=== PATIENT | female | born 1990 | race American Indian/Alaskan Native ===

== ENCOUNTER 2016-09-11 01:00 | Emergency (ER) | payer SELFPAY ==
[2016-09-11 01:18] VITALS: BP 116/84
[2016-09-11] MEDS ORDERED: PERCOCET 5/325 PO ONE (02:34)
--- NOTE | 2016-09-11 02:36 | Emergency Department Report ---
ED Fall HPI - General Chief Complaint: Fall Stated Complaint: LEG FEELS BROKEN Time Seen by Provider: 09/11/16 02:26 Source: patient Mode of arrival: Wheelchair - History of Present Illness Initial Comments: She comes in the ER today complaining of left leg pain after falling and tripping down some stairs tonight. Patient denies any neck pain, head injury, loss of consciousness, bleeding, abdominal pain, chest pain. Patient states that she tried to get up but she has not been able to weight on her left leg. MD Complaint: fall - Related Data Previous Rx's Medication Instructions Recorded Last Taken Type Naproxen [Naprosyn TAB] 500 mg PO BID #14 tablet 09/11/16 Unknown Rx oxyCODONE /ACETAMINOPHEN [Percocet 1 tab PO Q6HR #18 tablet 09/11/16 Unknown Rx 5/325 mg] Allergies Allergy/AdvReac Type Severity Reaction Status Date / Time No Known Allergies Allergy Unverified 07/29/14 16:31 ED Review of Systems ROS: Stated complaint: LEG FEELS BROKEN Other details as noted in HPI Constitutional: denies: chills, fever Eyes: denies: eye pain, eye discharge, vision change ENT: denies: ear pain, throat pain Respiratory: denies: cough, shortness of breath, wheezing Cardiovascular: denies: chest pain, palpitations Endocrine: no symptoms reported Gastrointestinal: denies: abdominal pain, nausea, diarrhea Genitourinary: denies: urgency, dysuria, discharge Musculoskeletal: joint swelling (left knee), arthralgia (left knee). denies: back pain Skin: denies: rash, lesions Neurological: denies: headache, weakness, paresthesias Psychiatric: denies: anxiety, depression Hematological/Lymphatic: denies: easy bleeding, easy bruising ED Past Medical Hx - Past Medical History Previous Medical History?: No - Surgical History Past Surgical History?: No - Social History Smoking Status: Never Smoker Substance Use Type: Alcohol, Marijuana - Medications Home Medications: Home Medications Medication Instructions Recorded Confirmed Last Taken Type Naproxen [Naprosyn TAB] 500 mg PO BID #14 tablet 09/11/16 Unknown Rx oxyCODONE /ACETAMINOPHEN [Percocet 1 tab PO Q6HR #18 tablet 09/11/16 Unknown Rx 5/325 mg] ED Physical Exam - General Limitations: No Limitations General appearance: alert, in no apparent distress - Head Head exam: Present: atraumatic, normocephalic, normal inspection - Eye Eye exam: Present: normal appearance, PERRL - ENT ENT exam: Present: mucous membranes moist - Neck Neck exam: Present: normal inspection, full ROM. Absent: tenderness, lymphadenopathy - Respiratory Respiratory exam: Present: normal lung sounds bilaterally. Absent: respiratory distress - Cardiovascular Cardiovascular Exam: Present: regular rate, normal rhythm. Absent: systolic murmur, diastolic murmur, rubs, gallop - GI/Abdominal GI/Abdominal exam: Present: soft, normal bowel sounds. Absent: distended, tenderness - Extremities Exam Extremities exam: Present: tenderness, normal capillary refill, joint swelling, other (patient is tender to the left knee with mild amount of joint swelling. Greatest amount of tenderness is noted to lateral aspects anteriorly. Distal pulses and neurologically intact.). Absent: full ROM, pedal edema, calf tenderness - Back Exam Back exam: Present: normal inspection, full ROM. Absent: tenderness, paraspinal tenderness, vertebral tenderness - Neurological Exam Neurological exam: Present: alert, oriented X3, CN II-XII intact, reflexes normal. Absent: motor sensory deficit - Psychiatric Psychiatric exam: Present: normal affect, normal mood - Skin Skin exam: Present: warm, dry, intact, normal color. Absent: rash ED Course Vital Signs 09/11/16 01:11 Temperature 98.7 F Pulse Rate 114 H Respiratory 20 Rate Blood Pressure 116/84 O2 Sat by Pulse 100 Oximetry ED Medical Decision Making - Radiology Data Radiology results: image reviewed interpreted by me: Minimally displaced left tibial plateau fracture - Medical Decision Making X-ray results reviewed and discussed with patient room. Patient placed in a posterior long leg splint and educated on crutches here in the ER. Patient was given Percocet orally for pain relief. Patient states she is feeling much better after and medicated and is well as having the splint on her leg. I strongly encouraged patient not to apply any weight to the leg and patient is to follow-up with orthopedics early next week for evaluation of potential surgery. Patient is nontoxic and hemodynamically stable and is ready for discharge. Critical care attestation.: If time is entered above; I have spent that time in minutes in the direct care of this critically ill patient, excluding procedure time. ED Disposition Clinical Impression: Tibial plateau fracture, left Disposition: DISCHARGED TO HOME OR SELFCARE Is pt being admited?: No Does the pt Need Aspirin: No Condition: Stable Instructions: Leg Fracture (ED), Crutch Instructions (ED) Prescriptions: Naproxen [Naprosyn TAB] 500 mg PO BID #14 tablet oxyCODONE /ACETAMINOPHEN [Percocet 5/325 mg] 1 tab PO Q6HR #18 tablet Referrals: PRIMARY CAREMD [Primary Care Provider] - 3-5 Days LEVI AGUILAR MD [Staff Physician] - 3-5 Days Forms: Work/School Release Form(ED) Time of Disposition: 03:50
--- NOTE | 2016-09-11 04:01 | XRay Report ---
FINAL REPORT PROCEDURE: XR TIBIA FIBULA 2V LT TECHNIQUE: LEFT tibia and fibula radiographs, AP and lateral views. CPT 93803 HISTORY: PAIN COMPARISON: No prior studies are available for comparison. FINDINGS: Fracture (s) and/or Dislocation(s): There is a nondisplaced fracture of the lateral tibial plateau. No depression is seen. Remainder of the tibia and fibula are intact. Imaged portion of the femur is intact. Patella is intact.. Joint space(s): There is lipohemarthrosis of the knee joint.. Soft tissues: Normal . Bone mineralization: Normal . Foreign bodies: None . IMPRESSION: There is a nondisplaced fracture of the lateral tibial plateau. No depression is seen. Remainder of the tibia and fibula are intact. Imaged portion of the femur is intact. Patella is intact.. There is lipohemarthrosis of the knee joint..
--- NOTE | 2016-09-11 04:03 | XRay Report ---
FINAL REPORT PROCEDURE: XR KNEE 3V LT TECHNIQUE: Left knee radiographs, AP, lateral and sunrise views. CPT 69836 HISTORY: PAIN COMPARISON: No prior studies are available for comparison. FINDINGS: Fracture (s) and/or Dislocation(s): There is a fracture of the left lateral tibial plateau. No significant depression is seen although CT may yield more detail. The femur, patella and fibula are intact.. Alignment: Normal . Joint space(s): There is no joint dislocation.. Soft tissues: There lipohemarthrosis of the knee joint.. Bone mineralization: Normal . Foreign bodies: None . IMPRESSION: There is a fracture of the left lateral tibial plateau. No depression or displacement is identified. If indicated, CT may be helpful. There is no joint dislocation.. There lipohemarthrosis of the knee joint. .
== END 2016-09-11 04:03 | disposition home or self-care (01) ==
LOC: ED 01:00
DX: S82.142A Displaced bicondylar fracture of left tibia, initial encounter for closed fracture (principal); F12.10 Cannabis abuse, uncomplicated; W10.9XXA Fall (on) (from) unspecified stairs and steps, initial encounter; Y93.89 Activity, other specified; Y99.8 Other external cause status; Y92.89 Other specified places as the place of occurrence of the external cause

== ENCOUNTER 2018-06-29 07:39 | Emergency (ER) | payer OTHER ==
--- NOTE | 2018-06-29 09:27 | Emergency Department Report ---
ED Rash HPI - HPI Chief Complaint: Skin Rash Stated Complaint: ITCHY/EXCEMA Time Seen by Provider: 06/29/18 09:13 Duration: eczema Location: Head, Neck, Chest, Upper Extremities Suspected Cause: Other (eczema) Rash Symptoms: Yes Itching, Yes Peeling, Yes Blistering, No Facial Swelling, No Tongue/Oral Swelling, No Breathing Difficulties, No Choking Sensation, No Wheezing/Dyspnea, No Fever, No Lightheaded, No Malaise, No Myalgias Severity: moderate Other History: Gumaro is 27 yo female who has had eczema since a young age. She requests refill of triamcinolone ointment. No other concerns. Last evaluated by gis analyst developer last year. ED Review of Systems ROS: Stated complaint: ITCHY/EXCEMA Other details as noted in HPI Constitutional: denies: fever, malaise Skin: rash, lesions ED Past Medical Hx - Past Medical History Previous Medical History?: Yes Additional medical history: excema - Surgical History Past Surgical History?: No - Social History Smoking Status: Current Every Day Smoker Substance Use Type: Alcohol - Medications Home Medications: Home Medications Medication Instructions Recorded Confirmed Last Taken Type Naproxen [Naprosyn TAB] 500 mg PO BID #14 tablet 09/11/16 Unknown Rx oxyCODONE /ACETAMINOPHEN [Percocet 1 tab PO Q6HR #18 tablet 09/11/16 Unknown Rx 5/325 mg] Triamcinolone 0.025% (Nf) [Kenalog 1 applic TP TID #454 gram 06/29/18 Unknown Rx 0.025% OINT] Rash Exam - Exam General: Vital signs noted. No distress. Alert and acting appropriately. HEENT: No Periorbital Edema, No Conjuctival Injection, No Chemosis, No Perioral Edema, No Tongue Edema, No Uvular Edema, No Compromised Airway, No Drooling Lungs: No Labored Respirations, No Retractions, No Use of Accessory Muscles Skin: Yes Excoriations, Yes Tenderness, Yes Erythema, Yes Encrustations ED Course Vital Signs 06/29/18 07:55 Temperature 97.9 F Pulse Rate 93 H Respiratory 16 Rate Blood Pressure 124/74 [Left] O2 Sat by Pulse 96 Oximetry ED Medical Decision Making - Medical Decision Making Gumaro herman requested refill of triamcinolone ointment which I provided. Also provided prescription for prednisone steroid burst therapy. Critical care attestation.: If time is entered above; I have spent that time in minutes in the direct care of this critically ill patient, excluding procedure time. ED Disposition Clinical Impression: Eczema, Medication refill Disposition: TO HOME OR SELFCARE Is pt being admited?: No Does the pt Need Aspirin: No Condition: Stable Instructions: Eczema (ED) Prescriptions: Triamcinolone 0.025% (Nf) [Kenalog 0.025% OINT] 1 applic TP TID #454 gram Referrals: SARA ELENA MD [Primary Care Provider] - 3-5 Days
== END 2018-06-29 09:38 | disposition home or self-care (01) ==
LOC: ED 07:39
CPT/HCPCS: 99282